=== PATIENT | female | born 1990 | race African-American/Black ===

== ENCOUNTER 2020-06-18 06:00 | Emergency (ER) | payer OTHER ==
[~2020-06-18] VITALS: Ht 160 cm; Wt 92.1 kg
[2020-06-18 06:04] VITALS: BP 159/111
[2020-06-18] MEDS ORDERED: OXYCODONE-APAP1 EAC4 (06:08)
[2020-06-18] MEDS ORDERED: NORVASC5 MG PO (06:08)
== END 2020-06-18 06:53 | disposition left against medical advice (07) ==
LOC: ER 06:00
DX: M54.6 Pain in thoracic spine (principal); J45.909 Unspecified asthma, uncomplicated; I10 Essential (primary) hypertension; Z79.899 Other long term (current) drug therapy; Z88.8 Allergy status to other drugs, medicaments and biological substances; W01.0XXA Fall on same level from slipping, tripping and stumbling without subsequent striking against object, initial encounter; Y93.89 Activity, other specified; Y92.89 Other specified places as the place of occurrence of the external cause; Y99.8 Other external cause status